=== PATIENT | male | born 1940 | race Caucasian/White ===

== ENCOUNTER → 2023-07-13 09:02 | Outpatient (REF) | payer MEDICARE, OTHER, SELFPAY | LOC: MRI 3T 09:02 | PROVIDERS: ATTENDING PHYSICIAN Ophthalmology; FAMILY PHYSICIAN Internal Medicine | DX: H57.13 Ocular pain, bilateral (principal) | CPT/HCPCS: 70543; 70553; A9575 ==

== ENCOUNTER 2024-06-13 11:51 | Inpatient (IN) | payer MEDICARE, OTHER, SELFPAY ==
[2024-06-13] VITALS (10 sets, daily range): BP systolic 145–170; BP diastolic 68–90; BMI 29.8
[2024-06-13 07:54] LABS: ALT (SGPT) 29 U/L (0-50); AST (SGOT) 24 U/L (17-59); Albumin 3.9 g/dl (3.5-5.0); Alkaline Phosphatase 63 U/L (38-126); Blood Urea Nitrogen 17 mg/dl (9-20); Carbon Dioxide 32 mmol/L (22-30); Chloride 101 mmol/L (98-107); Glucose 122 mg/dl (70-99); Magnesium 2.2 mg/dl (1.6-2.3); Potassium 4.3 mmol/L (3.5-5.1); Sodium 140 mmol/L (135-145); Total Bilirubin 0.8 mg/dl (0.2-1.3); Total Protein 6.5 g/dl (6.3-8.2); eGFR > 60.00
[2024-06-13] MEDS: ANTIVERT 25 MG PO (07:57)
[2024-06-13 08:23] LABS: TSH Reflex To Free T4 0.98 uIU/ml (0.47-4.68)
--- NOTE | 2024-06-13 08:23 | ED.GENMED ---
History of Present Illness
General
Chief Complaint: Dizziness
Source: patient and spouse
Exam Limitations: none
Time Seen by Provider: 06/13/24 07:18
Nursing documentation reviewed up to this point in time: agreed with
History of Present Illness
History of Present Illness:
83-year-old male with past medical history of, GERD, bradycardia presenting to the emergency department today with concerns of room spinning dizziness that occurred after going to the bathroom roughly 3 hours prior to arrival. Some ongoing
dizziness but only with movement otherwise feels well when sitting and resting. Denies any chest pain shortness of breath mild cough over the past few weeks. No fevers.
Past History
Past History
ED Past Medical History: GERD (gastric ulcers), HTN and Other (Peptic ulcer disease, Low back pain, psoriasis)
ED Past Surgical History: Orthopedic and Tonsilectomy
Social History
Tobacco: Non-smoker
Alcohol: None
Family History
Family History: Other (Mother with lung cancer)
Review of Systems
Review of Systems
Allergies reviewed?: Yes
All Other Systems: ROS reviewed and negative except as documented in HPI and ROS
Phy Exam
Physical Exam
Physical Exam:
GENERAL: Alert , in no apparent distress
EYE: pupils equal and reactive
NECK: Supple, no significant adenopathy.
ENT: o/p clr, mmm.
CARDIAC: Regular rate and rhythm .
LUNGS: Clear breath sounds bilaterally, no acute respiratory distress, no wheezes/rales/rhonchi
ABDOMEN: Soft, without focal tenderness, no r/g, no cvat
NEUROLOGICAL: Alert and oriented, no focal neuro deficits 5 out of 5 upper and lower extremity strength normal sensation with palpating bilaterally
SKIN: Warm and dry, skin intact.
MUSCULOSKELETAL: No edema, well perfused.
PSYCH: Normal and appropriate interaction.
Course
Orders/Labs/Results
Orders:
Orders
06/13/24 07:07
Electrocardiogram (*1) Urgent
Reason for Study: Vertigo / Dizzy
EKG- Treatment ONCE
06/13/24 07:18
CMP [Comprehensive Metabolic Panel] Urgent
Complete Blood Count/With Diff Urgent
Magnesium Urgent
TSH Reflex To Free T4 Urgent
06/13/24 07:35
Meclizine [Antivert] 25 mg PO NOW STA
Chest [CR Chest - 2 Views ] Urgent
Comment:
Reason For Exam: cough
06/13/24 09:49
0.9% Sodium Chloride 1000 ml [Nss] 1,000 ml IV BOLUS
Abnormal Lab Results
06/13/24
07:18
Hct 52.3 H %
(39.0-52.0)
MCV 95.1 H fL
(80.0-94.0)
MCH 31.8 H pg
(27.0-31.0)
MPV 12.1 H fL
(7.4-10.4)
Abs Immat Gran (auto) 0.1 H 10^3/uL
(0-0.05)
Immature Gran % 0.9 H %
(0-0.5)
Lymphocytes % 19.1 L %
(20.5-51.1)
Carbon Dioxide 32 H mmol/L
(22-30)
Glucose 122 H mg/dl
(70-99)
06/13/24 07:18
06/13/24 07:18
Vital Signs
Initial and Last Documented VS:
Initial Vital Signs
Temp Pulse Resp BP Pulse Ox
97.6 F 40 18 156/86 100
06/13/24 06:56 06/13/24 06:56 06/13/24 06:56 06/13/24 06:56 06/13/24 06:56
Last Documented Vital Signs
Temp Pulse Resp BP Pulse Ox
97.6 F 58 17 151/75 98
06/13/24 06:56 06/13/24 09:15 06/13/24 09:00 06/13/24 09:15 06/13/24 09:15
MDM/Problems Addressed
MDM/Problems Addressed:
83-year-old male presenting to the emergency department today with concerns of worsening dizziness. No additional symptoms otherwise. Occurred this morning a few hours prior to arrival. Blood pressure slightly elevated on arrival heart rate in
the 40s and 50s. He does have a known history of bradycardia. Does have this chronically. Labs here without acute abnormalities. Patient was given dose of meclizine as initial symptoms seem to be somewhat consistent potentially with vertigo.
Meclizine without significant improvement of symptoms still lightheaded patient's heart rate occasionally in the low 30s. Concerning this plan to admit for monitoring and cardiology consultation.
*Critical Care Note
Total Time (30-74mins, 75-104mins- exclusive of procedures): Not Applicable
ED Attending Note
-
Portions of this chart may have been created with voice recognition software.� Occasional wrong word or��sound alike� substitutions may have occurred due to the inherent limitations of voice recognition software.
Discharge Plan
Departure
Patient Disposition: Admit
Date of Disposition: 06/13/24
Time of Disposition: 10:11
Presentation/result/management discussed w/ accepting MD/DO: Hospitalist
Patient with high blood pressure during this ER visit?: No
Condition: Good
Covid-19: Not Applicable
Discharge Problem:
Bradycardia
Prescriptions:
No Action
chromium picolinate 200 MCG tablet
200 mcg PO DAILY
Vitamin D3:
4,000 units PO DAILY
losartan-hydrochlorothiazide 1 TAB tablet
1 tab PO DAILY Qty: 1 0RF
mupirocin 1 APPLIC ointment
1 applic topical BID Qty: 1 0RF
sennosides [senna] 1 TABLET tablet
2 tab PO BID 0RF
acetaminophen 325 MG tablet
650 mg PO Q4HWA 0RF
aspirin 325 MG tablet
325 mg PO DAILY 0RF
Rx Instructions:
take with meal
magnesium hydroxide 30 ML suspension
30 ml PO DAILYPRN PRN (Reason: constipation) 0RF
docusate sodium 100 MG capsule
100 mg PO BID 0RF
pantoprazole 40 MG tablet,delayed release (DR/EC)
40 mg PO HS Qty: 30 0RF
Rx Instructions:
take 2x day x 3 days, then nightly on an empty stomach
oxycodone 5 MG tablet
5 mg PO Q6HPRN PRN (Reason: moderate-severe pain) Qty: 25 0RF
Rx Instructions:
1 tab moderate pain or 2 if pain severe
Dx total joint replacement
ongoing therapy
metaxalone 800 mg tablet
800 mg PO TID PRN (Reason: muscle pain) Qty: 14 0RF
tramadol 50 mg tablet
50 mg PO Q8H PRN (Reason: pain) Qty: 7 0RF
oxycodone-acetaminophen [Percocet] 5-325 mg Tablet
1 tab PO Q6HPRN PRN (Reason: pain) Qty: 12 0RF
Referrals:
Kranthi Groves MD [Family Provider] -
Interventions
Interventions:
*Risk Screen - Suicide Last Done: 06/13/24 06:59
*General Assessment Last Done: 06/13/24 07:45
*Neglect/Abuse Screening Last Done: 06/13/24 06:59
ED- Fall Risk Assessment Last Done: 06/13/24 07:43
*ED COVID-19 Vaccine History Last Done: 06/13/24 07:45
ED- Neurological Assessment Last Done: 06/13/24 07:43
ED- Cardiac Assessment Last Done: 06/13/24 07:43
ED Swallowing Screen Last Done: 06/13/24 07:43
Discharge Date and Time
Print Language: THAI
[2024-06-13 08:35] LABS: % Basophils 0.3 % (0-2); % Eosinophils 1.2 % (0-6); % Immature Granulocytes 0.9 % (0-0.5); % Lymphocytes 19.1 % (20.5-51.1); % Neutrophils 70.5 % (42.2-75.2); Absolute Eosinophils 0.1 10^3/uL (0-0.7); Absolute Immature Granulocytes 0.1 10^3/uL (0-0.05); Absolute Lymphocytes 1.3 10^3/uL (1.2-3.4); Absolute Monocytes 0.6 10^3/uL (0.1-0.6); Absolute Neutrophils 4.8 10^3/uL (1.4-6.5); Hematocrit 52.3 % (39.0-52.0); Hemoglobin 17.5 g/dL (13.0-18.0); Mean Corp Hgb Conc. 33.5 g/dL (33.0-37.0); Mean Corpuscular Hgb 31.8 pg (27.0-31.0); Mean Corpuscular Volume 95.1 fL (80.0-94.0); Mean Platelet Volume 12.1 fL (7.4-10.4); Nucleated Red Blood Cells % 0 % (-); Platelet Count 150 10^3/uL (130-400); Red Cell Dist. Width 12.9 % (11.5-14.5); White Blood Cell Count 6.9 10^3/uL (4.8-10.8)
[2024-06-13] MEDS: NSS 1000 IV (10:10)
[2024-06-13 11:40] LABS: Troponin I < 0.012 ng/ml
--- NOTE | 2024-06-13 12:43 | CON.CAR ---
Addendum entered and electronically signed by Keisha Milan MD 06/13/24 14:23:
I saw and examined the patient.
The Industrial Furnace Fabricator's note was reviewed and I agree with the note.
Comment: I spoke with the patient at great length. His cake cutter machine in [place] has told him previously that he is going to need a pacemaker. He has had intermittent dizziness at times related to phlebotomies (undergoes this for possible
hemochromatosis or polycythemia) but also sometimes dizziness with changing position or walking at home. Today's episode with persistent lightheadedness with the room spinning without trigger. EKG and telemetry with multiple episodes of sinus node
exit block. Frequent pauses noted. In the past by history pauses up to 4 seconds. Echocardiogram with normal LV function. Aortic valve sclerosis without significant valvular heart disease. Labs reviewed.
Exam he is alert and appropriate. 2/6 basal systolic murmur. Clear to auscultation bilaterally. No significant edema.
Given multiple episodes on telemetry and symptoms of dizziness and room spinning without clear trigger etiology is remains consistent with sinus node dysfunction and sinus node exit block for which he is having multiple events. He likely also has
some degree of vasovagal lightheadedness at times and will continue with good hydration.
We discussed the risks and benefits of proceeding with pacemaker. We discussed pacemaker procedure at great length including procedure itself, arm restrictions for 4 weeks and follow-up. He is agreeable to proceed.
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
Echo stable.
Labs stable.
I have discussed with electrophysiology and they agree with plan. N.p.o. for pacemaker today.
Original Note:
Consultation
Consultation Request
Date/Time Consultation Requested: 06/13/24
Date/Time Consultation Performed: 06/13/24
Requesting Provider: Hernando THORNE in the ER
Performing Provider: Dr. Keisha Milan
Reason for Consultation: Dizzy, abnormal ECG
Medical History
-
History of Present Illness:
Patient came to [facility] with dizziness and is now admitted with abnormal ECG and cardiology has been consulted. Patient follows with cake cutter machine in [place] primarily, but has seen Dr. Handley intermittently in the past. Patient reports a h/o 'too
much iron' in his blood and so he donates 4 times a year and after his last 3 phlebotomies he had near syncope. He then notes that his primary cake cutter machine noted that his HR was getting lower over the years and so patient wore a 1 week monitor last
year and HR as low a 29 at one point so PPM was recommended, but patient declined due to lack os symptoms. Patient awoke early this morning with need to urinate and stood up from bed quickly and initially felt fine, but after ambulating 20 feet he
started with lightheadedness and felt like the room was spinning. No LOC. Patient called 911 and in the ER he was given meclizine with minimal improvement. Tele and ECG looked like SR with intermittent sinus node exit block. No chest pain or SOB.
PMH:
HTN
PCV
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
Spinal stenosis
Past Medical History
Past Medical History: Other (in HPI)
Past Surgical History: Orthopedic
Social History
Tobacco: Non-Smoker (but smokes)
Alcohol: None
Drug: None
Personal:
Living: With Family
Family History
Family History: Other (FH of pericarditis)
Allergies / Home Medications
Allergy/AdvReac Type Severity Reaction Status Date / Time
aquacell Allergy Rash Uncoded 06/13/24 07:00
�Medication �Instructions �Recorded �Confirmed �Type
chromium picolinate 200 mcg tablet 200 mcg PO DAILY Supplement 02/06/19 06/13/24 History
cholecalciferol (vitamin D3) 50 100 mcg PO DAILY Supplement 06/13/24 06/13/24 History
mcg (2,000 unit) tablet (Vitamin
D3)
hydrochlorothiazide 25 mg tablet 25 mg PO DAILY Blood Pressure 06/13/24 06/13/24 History
losartan 100 mg tablet 100 mg PO DAILY Blood Pressure 06/13/24 06/13/24 History
Review of Systems
-
History Source: Patient
All other systems: Negative unless noted
Physical Exam
Vital Signs
Temp Pulse Resp BP Pulse Ox
97.6 F 49 10 151/89 99
06/13/24 06:56 06/13/24 11:00 06/13/24 11:00 06/13/24 11:00 06/13/24 11:00
GEN: NAD. AAOx3
HEENT: EOMI, MMM
LUNGS: RA. CTA, no wheezes/rales
CV: Reg, S1/S2, no murmur
ABD: soft, BS+, NT/ND
EXT: No clubbing, cyanosis, lesions or edema B/L
NEURO: Gross non-focal
SKIN: No rash
Lab Results
06/13/24 07:18
06/13/24 07:18
Troponin I < 0.012 ng/ml 06/13/24 10:59
Impression / Plan
-
PCP: Unknown
Cardiology: Dr. Kranthi Groves [phone] is his cake cutter machine in [place], Dr. Handley locally but last seen 2018
Impression:
Admitted with dizziness
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
previously recommended PPM by his PCP in 2023
HTN
PCV
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
Spinal stenosis
Echo 06/13/24: EF 55-60%, no WMA, normal RV size and function, trace MR, no /AI, mild TR with PAP 22 mmHg
Plan:
-Patient came to [facility] with dizziness and is now admitted with abnormal ECG and cardiology has been consulted. Patient follows with cake cutter machine in [place] primarily, but has seen Dr. Handley intermittently in the past. Patient reports a h/o 'too
much iron' in his blood and so he donates 4 times a year and after his last 3 phlebotomies he had near syncope. He then notes that his primary cake cutter machine noted that his HR was getting lower over the years and so patient wore a 1 week monitor last
year and HR as low a 29 at one point so PPM was recommended, but patient declined due to lack os symptoms. Patient awoke early this morning with need to urinate and stood up from bed quickly and initially felt fine, but after ambulating 20 feet he
started with lightheadedness and felt like the room was spinning. No LOC. Patient called 911 and in the ER he was given meclizine with minimal improvement. Tele and ECG looked like SR with intermittent sinus node exit block. No chest pain or SOB.
-ECG and tele reviewed by me look like SR and intermittent sinus node exit block.
-Patient was previously recommended PPM and declined, but is now agreeable due to increased symptoms.
-PPM orders placed.
-Echo performed in the ER is noted above. EF preserved.
-BP 160/74 and he missed his usual doses of HCTZ 25 mg daily and losartan 100 mg daily. Will give meds post-PPM pending BP.
-Troponin undetectable. No CP.
--- NOTE | 2024-06-13 16:12 | ITS.CL.PACE ---
Rectifying Operator - Pacemaker Implant
Pacemaker Implant
Procedure Report:
PACEMAKER IMPLANT REPORT
PCP: Unknown
Cardiology: Dr. Kranthi Groves [phone] is his maintenance director in [place], Dr. Handley locally but last seen 2018
Date of Procedure: 06/13/24
Procedure:
Implantation of dual-chamber permanent pacemaker utilizing the left bundle branch for conduction system pacing
Indication/Diagnosis:
Non-reversible symptomatic bradycardia due to sinus node dysfunction.
After informed consent was obtained, 'time out' was called and confirmed, the patient was prepped and draped in a sterile fashion. Lidocaine with epi was used for local anesthesia. Central venous access was obtained via subclavian venipuncture. An
incision was made along the left chest and a pre-pectoral pocket was formed. Using a Seldinger technique and peel-away sheaths, the pacing leads were placed under fluoroscopic guidance.
Fluoroscopy was used to determine likely anatomic site for left bundle branch pacing. The Medtronic C315 sheath was used to deliver the Medtronic 3830 Selectsecure pacing lead with the helix exposed just exposed from the sheath tip during continuous
monitoring when pacemapping the septum during gentle clockwise rotation to obtain a paced QRS morphology of a W pattern in lead V1. Once the suspected optimal site was identified, lead deployment was performed with several rapid rotations as paced
QRS morphology was intermittently monitored until a paced QRS complex in lead V1 demonstrated development of an R wave [ ] (qR or rSR).
Unipolar pacing impedance dropped by approximately 100 ohms suggesting it had reached the left ventricular subendocardial.
Stable VEgm injury current is present throughout final lead position including at end of case, suggesting there was no perforation through the septum into the LV cavity.
Unipolar pacing impedance is 1000 Ohms
Unipolar pacing threshold is stable at 1 V @ 0.4 ms.
Final conduction system paced QRS complex duration is 104 ms
LVAT is 80 ms and peak V5 -> peak V1 timing is 36 ms
Right atrial lead was placed at the RAA.
Once testing (see below) showed adequate and stable function, the leads were secured using the suture sleeves. The pocket was liberally irrigated with antibiotic solution. The leads were connected to the generator header and the leads and
generator were placed within the pocket. Fluoroscopy confirmed stable lead position. The pocket was closed in the typical fashion.
Antibiotic pouch was used
Fluoroscopy was used to guide lead placement.
IMPLANTS:
Medtronic [id number], SN: [id number], Left Pectoral
RA: Medtronic 5076-45, SN: [id number], RAA
Left Bundle: Medtronic [id number] , SN:[id number], Interventricular septum at LBB
DEVICE TESTING:
Sensing: RA 3 mV, RV 15 mV
Capture: RA 1.25 V@0.4ms, RV 0.75 V@0.4ms
Ohms: RA 650, RV 1000
FINAL PROGRAMMING
[place] Pacing: AAIR+ 60-130 ppm
COMPLICATIONS:
None
CONCLUSIONS:
Successful implant of dual chamber permanent pacemaker utilizing Left Bundle Branch conduction system capture for ventricular resynchronization pacing.
Primary indication for pacemaker implantation is sick sinus syndrome. Therefore we will try to minimize ventricular pacing using MVP algorithm. Should ventricular pacing become required, the ability to capture the ventricular conduction system
should reduce the likelihood of developing any pacing induced cardiomyopathy.
RECOMMENDATIONS:
1. Post-op care (tele, CXR, IV abx)
2. In-Office wound check in 5-7 days
Copy to:
Dr. Kranthi Groves
Dr. Jamie Handley
[2024-06-13] MEDS: LOVENOX 40 MG SC (17:40)
--- NOTE | 2024-06-13 17:58 | HPS.HSE ---
Addendum entered and electronically signed by Speedy Hawley MD 06/14/24 13:14:
83 male history of hypertension sinus bradycardia with known pauses GERD vitamin D deficiency who presents with complaints of dizziness began around 4:00 and morning after micturating. He did not pass out was not associated with shortness of breath
or chest discomfort was told by EMS likely vertigo. Received 1 dose of meclizine in the ED without significant improvement however bedside that he had sinus bradycardia with sinus pauses of 3 to 4 seconds. He follows with a charcoal burner beehive kiln at
[place]. In the past has been recommended pacemaker after having a 1 week clinical research monitor that showed sinus bradycardia down to the and received a second opinion for which by charcoal burner beehive kiln in [place] recommended consideration for pacemaker
however this was not followed up on.
Near syncope/dizziness which could be vertigo but expect some improvement after meclizine. Noted to have sinus bradycardia and sinus pauses but had a regular rhythm on palpation of radial pulse.
Will check 2D echocardiogram
Avoid AV raymond blocking agents
Return on telemetry
Obtain troponins
Consult cardiology
Keep atropine at bedside
As this is likely symptomatic bradycardia with sinus pause will likely require pacemaker as he is hemodynamically stable I do not think we have to go forward with TVP/transcutaneous pacing at this time
Hypertension
Continue antihypertensives
Vitamin D deficiency
Continue vitamin D
Total time spent 79minutes
Original Note:
Family Physician
-
Family Physician: Kranthi Groves MD ([place], [place])
Chief Complaint
-
Dizziness
History of Present Illness
Mr. Garcia is an 83-year-old male with a past medical history of sinus bradycardia, hypertension, and 'too much iron in his blood' presented to [facility] with the chief complaint of dizziness. Patient states that he woke early this morning
with a need to urinate, and stood up from his bed quickly, ambulated approximately 20 feet, and then started to feel lightheaded. He described this as if being on a boat that was rocking back and forth. He denied any chest pain, shortness of
breath, nausea, diaphoresis, or loss of consciousness during this episode. Patient states the episode lasted approximately half an hour. During this time, he decided to call EMS. Patient was fine enough to go outside to his driveway and move his
car so that EMS could use the driveway.
In the emergency department, patient was given 1 dose of meclizine with minimal improvement. EKG showed marked sinus bradycardia, and old right bundle branch block, and when compared to an old EKG, ventricular rate had decreased by about 20 beats
per minute. Patient states that his regular charcoal burner beehive kiln and [employer] told him that over the years his sinus bradycardic rate was getting lower and lower. Patient also notes, that he has had syncopal episodes in the past, however all
episodes were after donating blood, which she does regularly, since he was told that he has 'too much iron in his blood'.
Medical History
Past Medical History
Past Medical History: Reports Other (Sinus bradycardia, hypertension, GERD, 'too much iron in the blood')
Past Surgical History: Reports Other (Bilateral hip surgery, spinal surgery)
Social History
Tobacco: Non-smoker
Alcohol: None
Drug: None
Personal:
Living: With Family
Family History
Family History: Not pertinent
Allergies / Home Medications
Allergies reflects when Allergies were last updated in [facility].
Home Medications with original date entered in [facility]
Allergy/Medication List:
Allergies: Aquacel�rash
Cholecalciferol 100 mcg p.o. daily
Chromium picolinate 200 mcg p.o. daily
Hydrochlorothiazide 25 mg p.o. daily
Losartan 100 mg p.o. daily
Review of Systems
-
History Source: Patient
A 12 point ROS was completed and negative except as noted: Yes
Physical Exam
Vital Signs
Vital Signs
Temp Pulse Resp BP Pulse Ox
97.7 F 42 18 165/83 99
06/13/24 15:05 06/13/24 15:05 06/13/24 15:05 06/13/24 15:05 06/13/24 15:05
Physical Exam
General: Well Developed, Well Nourished, Comfortable and Conversant
HEENT: NormoCephalic, Anicteric and Moist mucous membranes
Respiratory: Clear and Non Labored Respirations; No Wheezes, Rales, Rhonchi or Crackles
Cardiac: S1/S2, Irregular Rhythm and Bradycardia
GI: Soft, Non Tender and Non Distended
Musculoskeletal: No Clubbing, No Cyanosis and No Edema
Skin: Warm and Dry
Neuro: Awake, Alert, Oriented, No Motor Deficits, Nonfocal/grossly intact and Other (Gait steady)
Psych: Calm
Laboratory Results
-
06/13/24 07:18
06/13/24 07:18
Laboratory Results
Total Bilirubin 0.8 mg/dl (0.2-1.3) 06/13/24 07:18
AST 24 U/L (17-59) 06/13/24 07:18
ALT 29 U/L (0-50) 06/13/24 07:18
Alkaline Phosphatase 63 U/L (38-126) 06/13/24 07:18
Troponin I < 0.012 ng/ml 06/13/24 10:59
Data Reviewed
-
Lab Data: Labs Reviewed by me and Discussed with Patient
Impression/Plan
-
1. Sinus Node Exit Block
- Cardiology consulted early
- EKG and tele show intermittent sinus node exit block; PPM is indicated
- Echo: EF preserved
- Negative troponins
2. Hypertension
-BP 165/83
-Patient did not take his meds this morning, held for procedure
-Restart home meds tomorrow
3. Vitamin D Deficiency
-Continue Home Meds
Lovenox/regular/full code
[2024-06-13] MEDS: TYLENOL 650 MG PO (20:10)
[2024-06-13] MEDS: ULTRAM 25 MG PO (21:35)
[2024-06-13] MEDS: ANCEF 5 IV (21:36)
--- NOTE | 2024-06-13 23:29 | PTCARENOTE ---
22:04 troponin jumped to 0.370, was previously negative at 11:00 AM. Pt has no complaints of chest pain, palpitations. States he's actually feeling better since pacemaker was placed this afternoon. WIRE WRAPPING MACHINE OPERATOR made aware, asked to reach out to geriatric personal care aide
[employer] Deputy Sheriff. Cards aware, no new orders at this time. Agrees with trending troponins. Pt resting comfortably in bed, plan of care ongoing.
[2024-06-14 03:41] VITALS: BP 163/88
[2024-06-14 04:46] LABS: Hematocrit 46.5 % (39.0-52.0); Mean Corp Hgb Conc. 34.4 g/dL (33.0-37.0); Mean Corpuscular Hgb 31.9 pg (27.0-31.0); Mean Corpuscular Volume 92.6 fL (80.0-94.0); Mean Platelet Volume 12.1 fL (7.4-10.4); Platelet Count 126 10^3/uL (130-400); Red Blood Cell Count 5.02 10^6/uL (4.70-6.10); Red Cell Dist. Width 12.5 % (11.5-14.5); White Blood Cell Count 6.7 10^3/uL (4.8-10.8)
[2024-06-14 04:56] LABS: Blood Urea Nitrogen 16 mg/dl (9-20); Calcium 8.5 mg/dl (8.4-10.2); Carbon Dioxide 27 mmol/L (22-30); Chloride 104 mmol/L (98-107); Glucose 104 mg/dl (70-99); Magnesium 2.1 mg/dl (1.6-2.3); Potassium 4.1 mmol/L (3.5-5.1); Sodium 137 mmol/L (135-145)
[2024-06-14] MEDS: ULTRAM 25 MG PO (05:02)
[2024-06-14] MEDS: ANCEF 5 IV (05:02)
[2024-06-14 05:05] LABS: Estimated Creatinine Clearance 59 ml/min; eGFR > 60.00
[2024-06-14 05:18] LABS: Troponin I 0.332 ng/ml
[2024-06-14 07:13] VITALS: BP 158/88
[2024-06-14] MEDS: VITAMIN D3 (cholecalciferol) 100 MCG PO (08:32)
[2024-06-14] MEDS: COZAAR 100 MG PO (08:32)
[2024-06-14] MEDS: ORETIC 25 MG PO (08:32)
[2024-06-14 10:07] LABS: Troponin I 0.342 ng/ml
[2024-06-14 11:35] VITALS: BP 157/76
--- NOTE | 2024-06-14 12:06 | W.PN.HOSP.TC ---
Addendum entered and electronically signed by Kole Feliz DO, Resident 06/14/24 15:57:
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
- Troponin trended down
Addendum entered and electronically signed by Speedy Hawley MD 06/14/24 15:28:
S/p PPM. Heart rate remains in the 60s. Dizziness completely resolved. Now feeling much better stronger. Ready to go home. Once cleared by cardiology will be discharged.
More than 30 minutes spent in discharge including
Final examination of the patient
Summarizing hospital stay
Instructions for continuing care to all relevant caregivers
Preparation of discharge records, prescriptions, and referral forms
Total time spent (in minutes): 36mins
Original Note:
Today's Communication/Plan
-
.
Assessment / Plan
Assessment / Plan
1. Sinus Node Exit Block
- Cardiology consulted early
- EKG and tele showed intermittent sinus node exit block yesterday
- PPM placed yesterday; patient tolerated procedure well
- Echo: EF preserved
- Negative troponins yesterday; Troponin = 0.3
2. Hypertension
-BP 157/76
-Restart blood pressure medications this a.m.
3. Vitamin D Deficiency
-Continue Home Meds
Lovenox/regular/full code
Anticipated Discharge: Today
Subjective/Interval History
-
Date of Service: June 14, 2024
Patient seen and examined while resting comfortably in bed. Patient states that he is feeling well today. He denies any dizziness, chest pain, shortness of breath, lower extremity swelling. States there is some discomfort in his left arm
secondary to the movement restrictions placed on it.
Objective Data
-
Labs:
Laboratory Results
06/14/24
04:21
WBC 6.7
Hgb 16.0
Hct 46.5
Plt Count 126 L
Sodium 137
Potassium 4.1
Chloride 104
Carbon Dioxide 27
BUN 16
Creatinine 1.0
Glucose 104 H
Calcium 8.5
Vital Signs:
Vital Signs
Temp Pulse Resp BP Pulse Ox
97.9 F 61 18 157/76 96
06/14/24 11:35 06/14/24 11:35 06/14/24 11:35 06/14/24 11:35 06/14/24 11:35
I&O
06/13/24 06/14/24 06/15/24
06:59 06:59 06:59
Intake Total 0 / 0
Output Total 550 / 550
Balance -550 / -550
Review of Systems
-
History Source: Patient
Constitutional: Reports No Symptoms
Respiratory: Reports No Symptoms
Cardiac: Denies Chest Pain
Neuro: Denies Dizzy or Headache
Physical Exam
-
General: Well Developed, Well Nourished, No Apparent Distress, Comfortable and Conversant
HEENT: Normocephalic and Atraumatic
Respiratory: Clear to Auscultation
Cardiac: Regular Rhythm and S1/S2
GI: Soft and Nontender
Musculoskeletal: No Clubbing, No Cyanosis and No Edema
Skin: Warm
Neuro: Awake and Alert
Psych: Calm
Data Reviewed
-
Labs: Labs Reviewed by me and Discussed with Patient
--- NOTE | 2024-06-14 13:09 | W.PN.CARDCBS ---
Addendum entered and electronically signed by Nomi Cummings MD 06/14/24 16:50:
Patient feels well postop day 1 status post dual-chamber Medtronic permanent pacemaker
PMH: Possible hemochromatosis, hypertension, PVCs, spinal stenosis
160/80, pulse 62, respirate 20, head neck exam unremarkable, left arm immobilizer, lungs clear regular rate and rhythm, incision intact, no edema, abdomen benign
EKG atrially paced, right bundle branch block
Telemetry reviewed
Labs: Hemoglobin 16, glucose 104, troponin 0.342, creatinine 1
Impression: See below
Plan:
Overall doing well, detectable troponin likely related to pacemaker implantation
Okay for discharge from cardiac standpoint
Cardiac follow-up arranged
Original Note:
Today's Communication / Plan
-
Pacemaker site clean dry intact
AV paced rhythm on post pacemaker implant EKG
Chest x-ray stable with no pneumothorax
Stable for cardiology standpoint for discharge
Impression / Plan
-
PCP: Unknown
Cardiology: Dr. Kranthi Groves [phone] is his spares scheduler in [place], Dr. Handley locally but last seen 2019
Impression:
Admitted 06/13/2024 with dizziness
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
s/p DC Medtronic PPM with His bundle lead 06/13/2024
HTN
PCV
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
Spinal stenosis
Echo 06/13/24: EF 55-60%, no WMA, normal RV size and function, trace MR, no /AI, mild TR with PAP 22 mmHg
Plan:
Admitted 06/13/2024 with dizziness and found to have sinus node exit block on ECG and tele
Successful implant of dual chamber Medtronic permanent pacemaker utilizing Left Bundle Branch conduction system capture for ventricular resynchronization pacing.
Primary indication for pacemaker implantation is sick sinus syndrome. Therefore we will try to minimize ventricular pacing using MVP algorithm. Should ventricular pacing become required, the ability to capture the ventricular conduction system
should reduce the likelihood of developing any pacing induced cardiomyopathy.
-ECG 06/14/24 personally reviewed by myself - now with AV paced rhythm s/p PPM 06/13/24
-Post PPM CXR - No evidence for pneumothorax and leads stable
-Patient reports he feels great post PPM implant no further dizziness.
-Echo with EF preserved and no significant valve disease
-BP a bit on the higher side. Losartan and HCTZ were initially held on admission but resumed post PPM. If BP remains high as outpt consider starting low dose amlodipine
-Troponin initially undetectable however found to be 0.37 post pacemaker implant and trended down thereafter. Patient denies any chest pain and elevated troponin most likely secondary to pacemaker insertion. Could consider ischemic evaluation as
outpatient.
-Patient stable from cardiac standpoint for discharge today
-Will arrange for outpatient follow-up and incision check.
-Patient does follow with cardiology and [place] but thinks he wants to get established with cardiology locally. Will arrange
Discussed with nursing and hospitalist
HPI 06/13/2024:
Patient came to [facility] with dizziness and is now admitted with abnormal ECG and cardiology has been consulted. Patient follows with spares scheduler in [place] primarily, but has seen Dr. Handley intermittently in the past. Patient reports a h/o 'too
much iron' in his blood and so he donates 4 times a year and after his last 3 phlebotomies he had near syncope. He then notes that his primary spares scheduler noted that his HR was getting lower over the years and so patient wore a 1 week monitor last
year and HR as low a 29 at one point so PPM was recommended, but patient declined due to lack os symptoms. Patient awoke early this morning with need to urinate and stood up from bed quickly and initially felt fine, but after ambulating 20 feet he
started with lightheadedness and felt like the room was spinning. No LOC. Patient called 911 and in the ER he was given meclizine with minimal improvement. Tele and ECG looked like SR with intermittent sinus node exit block. No chest pain or SOB.
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
Subjective
Date of Service: June 14, 2024
Patient seen and examined. Patient reports he is feeling well. Denies further episodes of dizziness, shortness of breath or chest pain
Objective
Labs:
06/14/24 04:21
06/14/24 04:21
Labs
Hgb 16.0 g/dL (13.0-18.0) 06/14/24 04:21
Hct 46.5 % (39.0-52.0) 06/14/24 04:21
Plt Count 126 10^3/uL (130-400) L 06/14/24 04:21
Sodium 137 mmol/L (135-145) 06/14/24 04:21
Potassium 4.1 mmol/L (3.5-5.1) 06/14/24 04:21
BUN 16 mg/dl (9-20) 06/14/24 04:21
Creatinine 1.0 mg/dL (0.7-1.3) 06/14/24 04:21
Glucose 104 mg/dl (70-99) H 06/14/24 04:21
Troponins
06/13/24 06/13/24 06/13/24
10:59 16:15 22:04
Troponin I < 0.012 Cancelled 0.370 H*
06/14/24 06/14/24
04:21 09:37
Troponin I 0.332 H* 0.342 H*
Vital Signs and I&O:
Vital Signs
Temp Pulse Resp BP Pulse Ox
97.9 F 61 18 157/76 96
06/14/24 11:35 06/14/24 11:35 06/14/24 11:35 06/14/24 11:35 06/14/24 11:35
Vital Signs
Temp Pulse Resp BP Pulse Ox
97.9 F 61 18 157/76 96
06/14/24 11:35 06/14/24 11:35 06/14/24 11:35 06/14/24 11:35 06/14/24 11:35
Intake & Output
06/12/24 06/13/24 06/14/24 06/15/24
06:59 06:59 06:59 06:59
Intake Total 0 / 0
Output Total 550 / 550
Balance -550 / -550
Physical Exam
Physical Exam
GEN: No distress, awake, Ox3, sitting up in bed
HEENT: supple, anicteric, mmm
LUNGS: CTA, no wheezes/rales
CHEST: Pacemaker incision site clean dry intact with minimal dry heme. No evidence of hematoma
CV: Reg, S1/S2, no murmur, rub or gallop
ABD: soft, BS+, NT/ND
EXT: No edema, clubbing or cyanosis
NEURO: Gross non-focal
SKIN: No rash, warm, dry, pink
--- NOTE | 2024-06-14 13:40 | W.DCSUMMARY ---
Discharge Summary
Discharge Data
Date of Admission: 06/13/24
Date of Discharge: 06/14/24
-
Pending Results: No
Hospital Course
Abdias Garcia is a 83-year-old male with a past medical history of sinus bradycardia and hypertension who presented from home via EMS for dizziness.
HISTORY OF PRESENT ILLNESS
Patient woke up in the middle of the night to use the restroom, stood up from his bed quickly, ambulated approximately 20 feet and then started to feel lightheaded. He denied any chest pain, shortness of breath, nausea, diaphoresis, or loss of
consciousness during this episode. The episode lasted approximately half an hour. Patient noted prior history of presyncopal episodes, however each of these episodes were after giving blood.
ED COURSE
In the emergency department, patient was given 1 dose of meclizine with minimal improvement. The EKG showed marked sinus bradycardia and an old right bundle branch block and when compared to an old EKG, the ventricular rate had decreased by about
20 bpm. The patient was admitted to [facility] for telemetry monitoring and evaluation of this bradycardia.
HOSPITAL COURSE
Patient's physical exam exhibited an irregular rhythm with sinus pauses and sinus pauses were seen on the patient's heart monitor. Cardiology was consulted early on in hospital course and the patient was diagnosed with a sinus node exit block.
Patient was admitted a permanent pacemaker was indicated, and that he would be scheduled for implantation later that afternoon. The patient tolerated this procedure well, and the next morning was feeling better without any symptoms.
DISCHARGE RECOMMENDATIONS
Follow-up with a gas brazer for an in office wound check in 5 to 7 days.
Continue antihypertensive medications as directed.
Do not drive for 1 week.
Follow-up with primary care physician in approximately 1 week for additional recommendations.
Discharge Plan
-
Patient Disposition: Home (Routine Discharge)
Discharge Diagnosis/Procedures: Pacemaker Implant
Sinus node exit block
Condition: Fair
Diet: Low Cholesterol
Driving Restrictions: No driving for 1 week
Bathing Restrictions: OK to Shower
Stand Alone Forms: DC Inst - Implanted Device
Referrals:
[facility] [Provider Group] - 06/21/24 2:20 pm (Incision check appointment)
Kranthi Groves MD [Family Provider] - in one week
Lee Ann Hart PA-C [Specified Professional Personl] - 06/19/24 10:00 am (You have cardiology follow up with Lee Ann Hart PA-C on July 17 at 10 am in [address] in the [facility] which is located behind the hospital. If you are unable to make
this appointment please call [phone])
Prescriptions:
Continued
chromium picolinate 200 MCG tablet
200 mcg PO DAILY
hydrochlorothiazide 25 mg tablet
25 mg PO DAILY
losartan 100 mg tablet
100 mg PO DAILY
cholecalciferol (vitamin D3) [Vitamin D3] 50 mcg (2,000 unit) Tablet
100 mcg PO DAILY
Discharge Orders:
Discharge Patient (As Directed); Ordered 06/14/24
Ordered By: Kole Feliz
Discharge Date and Time
Print Language: LUXEMBOURGISH
[2024-06-14 15:20] VITALS: BP 160/80
--- NOTE | 2024-06-14 15:38 | PN.CDI ---
CDI
- -
CDI:
Physician Documentation Request
Admit Date: 06/13/24 11:51
Dear Doctor Trini,
Please review the following and provide your response in the progress notes.
Clinical Indicators:
Laboratory Tests
06/13/24 06/13/24 06/14/24
10:59 22:04 04:21
Troponin I < 0.012 0.370 H* 0.332 H*
06/14/24
09:37
Troponin I 0.342 H*
Based on the above and your clinical assessment, please clarify in the progress notes, the appropriate diagnosis, if significant, that supports the above abnormalities and additional evaluation, monitoring and/or treatment rendered:
Non ischemic myocardial injury
Abnormal lab value, clinically insignificant
Other (please specify)
Use of terms such as suspected, likely, concern for, or probable (associated with a specific diagnosis that is being evaluated, monitored, or treated as if it exists) are acceptable and can be coded in the inpatient setting, when documented at the
time of discharge.
Thank you,
Alesia Rodriguez RN BSN CCDS
CDI Specialist
please contact via tiger text
Please use your independent medical judgment in providing your response.
--- NOTE | 2024-06-14 15:47 | CM ---
Alert awake oriented patient who lives with his Graciela who lives in a 2 story home with 3 step to enter and 13 steps to bed and bathroom. He is independent in driving and in all activities of daily living.He was offered VN he declined need.He
had pacemaker placed. will drive him home.
No VN hx / No SNF history
Pharmacy [facility]
PCP DR Mary Groves
PLAN Home Declined VN
== END 2024-06-14 16:48 | disposition home or self-care (01) | DRG 243 ==
LOC: 4 EAST ACU 11:51
PROVIDERS: Internal Medicine Cardiovascular Disease; Nurse Practitioner Gerontology; Physician Assistant; ADMITTING PHYSICIAN Hospitalist; CONSULT PHYSICIAN Internal Medicine Cardiovascular Disease; EMERGENCY PHYSICIAN Emergency Medicine; FAMILY PHYSICIAN Internal Medicine
PROC: 02HL3JZ Insertion of Pacemaker Lead into Left Ventricle, Percutaneous Approach (ICD-10-PCS; 2024-06-13)
PROC: 02H63JZ Insertion of Pacemaker Lead into Right Atrium, Percutaneous Approach (ICD-10-PCS; 2024-06-13)
PROC: 0JH606Z Insertion of Pacemaker, Dual Chamber into Chest Subcutaneous Tissue and Fascia, Open Approach (ICD-10-PCS; 2024-06-13)
DX: I49.5 Sick sinus syndrome (principal); I5A Non-ischemic myocardial injury (non-traumatic); R42 Dizziness and giddiness; K21.9 Gastro-esophageal reflux disease without esophagitis; I10 Essential (primary) hypertension; I35.8 Other nonrheumatic aortic valve disorders; M54.50 Low back pain, unspecified; E83.119 Hemochromatosis, unspecified; Z77.22 Contact with and (suspected) exposure to environmental tobacco smoke (acute) (chronic); Z87.11 Personal history of peptic ulcer disease; Z80.1 Family history of malignant neoplasm of trachea, bronchus and lung; Z88.8 Allergy status to other drugs, medicaments and biological substances
CPT/HCPCS: 33208; 71045; 71046; 80048; 80053; 83735; 84443; 84484; 85025; 85027; 93005; 93306; 96360; 99285; C1769; C1785; C1887; C1892; C1898; Q9967

== ENCOUNTER 2024-06-20 21:54 | Emergency (ER) | payer MEDICARE, OTHER, SELFPAY ==
[2024-06-20 21:57] VITALS: BP 166/100
[2024-06-20 21:58] VITALS: BP 163/108
[2024-06-20 22:00] VITALS: BP 166/100
[2024-06-20 22:32] LABS: % Basophils 0.3 % (0-2); % Eosinophils 2.3 % (0-6); % Immature Granulocytes 0.3 % (0-0.5); % Lymphocytes 19.6 % (20.5-51.1); % Monocytes 11.2 % (1.7-9.3); % Neutrophils 66.3 % (42.2-75.2); Absolute Eosinophils 0.2 10^3/uL (0-0.7); Absolute Lymphocytes 1.5 10^3/uL (1.2-3.4); Absolute Monocytes 0.8 10^3/uL (0.1-0.6); Absolute Neutrophils 4.9 10^3/uL (1.4-6.5); Hematocrit 50.3 % (39.0-52.0); Hemoglobin 17.4 g/dL (13.0-18.0); Mean Corp Hgb Conc. 34.6 g/dL (33.0-37.0); Mean Corpuscular Hgb 32.3 pg (27.0-31.0); Mean Corpuscular Volume 93.5 fL (80.0-94.0); Mean Platelet Volume 11.8 fL (7.4-10.4); Nucleated Red Blood Cells % 0 % (-); Platelet Count 125 10^3/uL (130-400); Red Blood Cell Count 5.38 10^6/uL (4.70-6.10); White Blood Cell Count 7.4 10^3/uL (4.8-10.8)
[2024-06-20 22:39] LABS: ALT (SGPT) 27 U/L (0-50); AST (SGOT) 30 U/L (17-59); Albumin 3.8 g/dl (3.5-5.0); Alkaline Phosphatase 60 U/L (38-126); Blood Urea Nitrogen 26 mg/dl (9-20); Calcium 9.6 mg/dl (8.4-10.2); Carbon Dioxide 32 mmol/L (22-30); Chloride 101 mmol/L (98-107); Estimated Creatinine Clearance 54 ml/min; Glucose 99 mg/dl (70-99); Potassium 4.5 mmol/L (3.5-5.1); Sodium 136 mmol/L (135-145); Total Bilirubin 0.6 mg/dl (0.2-1.3); Total Protein 6.8 g/dl (6.3-8.2); eGFR > 60.00
--- NOTE | 2024-06-20 22:50 | ED.GENMED ---
History of Present Illness
General
Chief Complaint: Dizziness
Time Seen by Provider: 06/20/24 22:47
History of Present Illness
History of Present Illness:
TIME OF INITIAL ENCOUNTER:
HPI: Patient presents with lightheadedness and dizziness. Of note, the patient had a pacemaker placed due to bradycardia about a week ago Dr. Milan. Today he had episodes of lightheadedness and at one point felt like he was going to pass out.
He did not have any chest pain.
EXAM:
GENERAL: Well appearing in no distress
HEENT: Moist oral mucosa
CARDIOVASCULAR: No murmurs, normal heart rate, regular rhythm, No chest wall tenderness, device noted over the left anterior chest wall with no evidence of infection
PULMONARY: No respiratory distress, breath sounds are clear and equal
ABDOMEN: Soft with no peritoneal signs, no tenderness
NEUROLOGIC: Excellent strength all extremities, no coordination deficits
PSYCHIATRIC: Appropriate mental status, normal insight and judgement
EXTREMITIES: Nontender, no edema, moves all extremities equally
SKIN: No rash, no lesions
NUMBER AND COMPLEXITY OF PROBLEMS ADDRESSED AT THE ENCOUNTER
� Chronic conditions affecting care: GERD, high blood pressure, sick sinus syndrome/pacemaker 2024
� Acute Exacerbation and/or Progression of Chronic Illness: This is an acute problem
� Differential Diagnosis includes: Pacemaker malfunction, dehydration, hypertensive emergency, anemia
AMOUNT AND/OR COMPLEXITY OF DATA TO BE REVIEWED AND ANALYZED
� I performed an independent evaluation of and my interpretation is:
EKG: A paced, bifascicular block, no significant change compared to 06/14/2024
CT:
X-rays:
Laboratory Studies: CBC unremarkable except platelets slightly low, bicarb slightly high at 32, BUN is 26 with normal creatinine
Other:
� Review of other/old records: I reviewed the notes from last week including Dr. Milan's note of dual-chamber permanent pacemaker placement
� Clinical information was obtained by an independent historian: None needed
� Prescriptions/Medications Considered but not given:
� Further testing considered but not performed:
RISK OF COMPLICATIONS AND/OR MORBIDITY OR MORTALITY OF PATIENT MANAGEMENT
� Social determinants of health affecting care: Lives at home
� Discussion with other providers:
� Escalation of care including admission/observation vs risk of discharge considered: The patient's Medtronic device was interrogated. There was no abnormality noted including no VT, AT/AF
ANY OTHER UPDATES:
12:00 AM: The patient did have several systolic readings in the 180s and at 1 point was 124. I gave a hydralazine 5 mg dose. Repeat blood pressures have improved. He is already on max dose of losartan and is also on hydrochlorothiazide. Will add
low-dose of amlodipine. 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 Remains pacing appropriately in the emergency department on the monitor.
Past History
Past History
ED Past Medical History: GERD (gastric ulcers), HTN and Other (Peptic ulcer disease, Low back pain, psoriasis)
ED Past Surgical History: Orthopedic and Tonsilectomy
Social History
Tobacco: Non-smoker
Alcohol: None
Family History
Family History: Other (Mother with lung cancer)
Phy Exam
Physical Exam
Physical Exam:
See HPI
Course
Orders/Labs/Results
Orders:
Orders
06/20/24 22:06
EKG [Electrocardiogram (*1)] Urgent
Reason for Study: Tachycardia
06/20/24 22:07
EKG- Treatment ONCE
06/20/24 22:08
Complete Blood Count/With Diff Urgent
Comprehensive Metabolic Panel Urgent
06/20/24 22:50
Interrogate Pacemaker- Treatment ONCE
06/20/24 23:22
HydrALAZINE [Apresoline] 10 mg IV NOW STA
06/20/24 23:28
HydrALAZINE [Apresoline] 5 mg IV NOW STA
Abnormal Lab Results
06/20/24
22:08
MCH 32.3 H pg
(27.0-31.0)
Plt Count 125 L 10^3/uL
(130-400)
MPV 11.8 H fL
(7.4-10.4)
Absolute Monos (auto) 0.8 H 10^3/uL
(0.1-0.6)
Lymphocytes % 19.6 L %
(20.5-51.1)
Monocytes % 11.2 H %
(1.7-9.3)
Carbon Dioxide 32 H mmol/L
(22-30)
BUN 26 H mg/dl
(9-20)
06/20/24 22:08
06/20/24 22:08
Vital Signs
Initial and Last Documented VS:
Initial Vital Signs
Temp Pulse Resp BP Pulse Ox
36.7 C 66 18 166/100 99
06/20/24 21:57 06/20/24 21:57 06/20/24 21:57 06/20/24 21:57 06/20/24 21:57
Last Documented Vital Signs
Temp Pulse Resp BP Pulse Ox
36.7 C 60 19 145/86 97
06/20/24 21:57 06/21/24 00:00 06/21/24 00:00 06/21/24 00:00 06/21/24 00:00
*Critical Care Note
Total Time (30-74mins, 75-104mins- exclusive of procedures): Not Applicable
ED Attending Note
-
Portions of this chart may have been created with voice recognition software.� Occasional wrong word or��sound alike� substitutions may have occurred due to the inherent limitations of voice recognition software.
Discharge Plan
Departure
Patient Disposition: Home (Routine Discharge)
Date of Disposition: 06/21/24
Time of Disposition: 00:14
Patient with high blood pressure during this ER visit?: Yes
Discharge Problem:
Dizziness
Instructions: Dizziness
Prescriptions:
New
amlodipine 2.5 mg tablet
2.5 mg PO DAILY Qty: 30 0RF
No Action
chromium picolinate 200 MCG tablet
200 mcg PO DAILY
hydrochlorothiazide 25 mg tablet
25 mg PO DAILY
losartan 100 mg tablet
100 mg PO DAILY
cholecalciferol (vitamin D3) [Vitamin D3] 50 mcg (2,000 unit) Tablet
100 mcg PO DAILY
Referrals:
Kranthi Groves MD [Family Provider] -
Activity Restrictions/Additional Instructions:
Patient seen your blood pressures have been in the 160s to 180s range. We gave you a 5 mg dose of IV hydralazine. Your basic blood work is unremarkable. EKG is normal. We reviewed the Medtronic interrogation and this showed no sign of
abnormality to the rhythm of your heart or the pacemaker. The pacemaker is working appropriately. I am sending a prescription for amlodipine to your pharmacy.
Interventions
Interventions:
*Risk Screen - Suicide Last Done: 06/20/24 21:57
*General Assessment Last Done: 06/20/24 21:57
*Neglect/Abuse Screening Last Done: 06/20/24 21:57
ED- Fall Risk Assessment Last Done: 06/20/24 21:57
*ED COVID-19 Vaccine History Last Done: 06/20/24 21:57
ED- Neurological Assessment Last Done: 06/20/24 22:04
ED- Cardiac Assessment Last Done: 06/20/24 22:04
Discharge Date and Time
Print Language: UKRAINIAN
[2024-06-20 23:00] VITALS: BP 180/124
[2024-06-20 23:24] VITALS: BP 162/90
[2024-06-20] MEDS: APRESOLINE 5 MG IV (23:28)
[2024-06-21] VITALS: BP 145/86
== END 2024-06-21 01:02 | disposition home or self-care (01) ==
LOC: EMR 21:54
PROVIDERS: EMERGENCY PHYSICIAN Emergency Medicine; FAMILY PHYSICIAN Internal Medicine
DX: R42 Dizziness and giddiness (principal); R00.1 Bradycardia, unspecified; K21.9 Gastro-esophageal reflux disease without esophagitis; I10 Essential (primary) hypertension; Z87.11 Personal history of peptic ulcer disease; L40.9 Psoriasis, unspecified; Z80.1 Family history of malignant neoplasm of trachea, bronchus and lung; Z95.0 Presence of cardiac pacemaker
CPT/HCPCS: 99283; 80053; 85025; 93005

== ENCOUNTER 2024-07-19 06:22 | Emergency (ER) | payer MEDICARE, OTHER, SELFPAY ==
[2024-07-19] VITALS (10 sets, daily range): BP systolic 134–179; BP diastolic 83–102; PULSE 60–62
[2024-07-19 08:10] LABS: % Basophils 0.4 % (0-2); % Immature Granulocytes 0.4 % (0-0.5); % Lymphocytes 16.7 % (20.5-51.1); % Monocytes 9.9 % (1.7-9.3); % Neutrophils 71.6 % (42.2-75.2); Absolute Eosinophils 0.1 10^3/uL (0-0.7); Absolute Lymphocytes 1.2 10^3/uL (1.2-3.4); Absolute Monocytes 0.7 10^3/uL (0.1-0.6); Absolute Neutrophils 5.3 10^3/uL (1.4-6.5); Hemoglobin 16.4 g/dL (13.0-18.0); Mean Corp Hgb Conc. 34.2 g/dL (33.0-37.0); Mean Corpuscular Volume 93.6 fL (80.0-94.0); Mean Platelet Volume 11.7 fL (7.4-10.4); Nucleated Red Blood Cells % 0 % (-); Platelet Count 119 10^3/uL (130-400); Red Blood Cell Count 5.13 10^6/uL (4.70-6.10); Red Cell Dist. Width 12.7 % (11.5-14.5); White Blood Cell Count 7.4 10^3/uL (4.8-10.8)
[2024-07-19 08:13] LABS: ALT (SGPT) 31 U/L (0-50); AST (SGOT) 24 U/L (17-59); Albumin 3.8 g/dl (3.5-5.0); Alkaline Phosphatase 69 U/L (38-126); Blood Urea Nitrogen 20 mg/dl (9-20); Calcium 9.7 mg/dl (8.4-10.2); Carbon Dioxide 31 mmol/L (22-30); Chloride 102 mmol/L (98-107); Glucose 127 mg/dl (70-99); Potassium 4.6 mmol/L (3.5-5.1); Sodium 138 mmol/L (135-145); Total Bilirubin 0.9 mg/dl (0.2-1.3); Total Protein 6.3 g/dl (6.3-8.2); eGFR > 60.00
--- NOTE | 2024-07-19 08:35 | ED.GENMED ---
History of Present Illness
General
Chief Complaint: Blood Pressure Problem
Source: patient
Exam Limitations: none
Time Seen by Provider: 07/19/24 06:56
Nursing documentation reviewed up to this point in time: agreed with
History of Present Illness
History of Present Illness:
83-year-old male presenting to the emergency department today with concerns of elevated blood pressure at home. This seems to occur after he feels some room spinning dizziness. The room spinning dizziness seems to occur after he changes positions
rapidly. He was recently here twice in the past 2 months. 2 months ago he was found to have significant sinus pauses and has since had a pacemaker. This was placed and interrogated in the meantime with normal function. Cardiology deemed his
dizziness episodes did not be from cardiac origin. Otherwise here he is currently asymptomatic but did have an episode just prior to arrival.
Past History
Past History
ED Past Medical History: GERD (gastric ulcers), HTN and Other (Peptic ulcer disease, Low back pain, psoriasis)
ED Past Surgical History: Orthopedic and Tonsilectomy
Social History
Tobacco: Non-smoker
Alcohol: None
Family History
Family History: Other (Mother with lung cancer)
Review of Systems
Review of Systems
Allergies reviewed?: Yes
All Other Systems: ROS reviewed and negative except as documented in HPI and ROS
Phy Exam
Physical Exam
Physical Exam:
GENERAL: Alert , in no apparent distress
EYE: pupils equal and reactive
NECK: Supple, no significant adenopathy.
ENT: o/p clr, mmm.
CARDIAC: Regular rate and rhythm .
LUNGS: Clear breath sounds bilaterally, no acute respiratory distress, no wheezes/rales/rhonchi
ABDOMEN: Soft, without focal tenderness, no r/g, no cvat
NEUROLOGICAL: Alert and oriented, no focal neuro deficits 5 out of 5 upper and lower extremity strength normal sensation with palpating bilaterally normal finger-nose noticed and no pronator drift
SKIN: Warm and dry, skin intact.
MUSCULOSKELETAL: No edema, well perfused.
PSYCH: Normal and appropriate interaction.
Course
Orders/Labs/Results
Orders:
Orders
07/19/24 07:29
CT Head W/o Iv Contrast Urgent
Comment:
Reason For Exam: progressive GRAYSON, new
Orthostatic VS- Treatment ONCE
Pt Eval And Treat Urgent
Treatment: vestibular, vertigo symptoms
Activity Level: Ambulate
07/19/24 07:47
CBC/With Diff [Complete Blood Count/With Diff] Urgent
CMP [Comprehensive Metabolic Panel] Urgent
Abnormal Lab Results
07/19/24
07:47
MCH 32.0 H pg
(27.0-31.0)
Plt Count 119 L 10^3/uL
(130-400)
MPV 11.7 H fL
(7.4-10.4)
Absolute Monos (auto) 0.7 H 10^3/uL
(0.1-0.6)
Lymphocytes % 16.7 L %
(20.5-51.1)
Monocytes % 9.9 H %
(1.7-9.3)
Carbon Dioxide 31 H mmol/L
(22-30)
Glucose 127 H mg/dl
(70-99)
07/19/24 07:47
07/19/24 07:47
Vital Signs
Initial and Last Documented VS:
Initial Vital Signs
Temp Pulse Resp BP Pulse Ox
97.4 F 84 18 179/102 98
07/19/24 06:30 07/19/24 06:30 07/19/24 06:30 07/19/24 06:30 07/19/24 06:30
Last Documented Vital Signs
Temp Pulse Resp BP Pulse Ox
97.4 F 72 20 153/83 98
07/19/24 06:30 07/19/24 08:45 07/19/24 08:45 07/19/24 08:12 07/19/24 08:10
MDM/Problems Addressed
MDM/Problems Addressed:
83-year-old male presenting to the emergency department today with concerns of elevated blood pressure at home. Also had some room spinning dizziness that proceeded the elevated blood pressure. Here blood pressure is normal on my assess in the
130s over 60s. He currently is asymptomatic normal neurologic evaluation. Labs without emergent findings. CT head obtained without emergent findings. Patient feels well throughout stay. PT assessed the patient and recommend outpatient follow-up
with physical therapy otherwise stable for discharge return precautions given.
*Critical Care Note
Total Time (30-74mins, 75-104mins- exclusive of procedures): Not Applicable
ED Attending Note
-
Portions of this chart may have been created with voice recognition software.� Occasional wrong word or��sound alike� substitutions may have occurred due to the inherent limitations of voice recognition software.
Discharge Plan
Departure
Patient Disposition: Home (Routine Discharge)
Date of Disposition: 07/19/24
Time of Disposition: 10:29
Patient with high blood pressure during this ER visit?: No
Condition: Good
Covid-19: Not Applicable
Discharge Problem:
Vertigo
Instructions: Vertigo (a type of dizziness)
Prescriptions:
No Action
chromium picolinate 200 MCG tablet
200 mcg PO DAILY
hydrochlorothiazide 25 mg tablet
25 mg PO DAILY
losartan 100 mg tablet
100 mg PO DAILY
cholecalciferol (vitamin D3) [Vitamin D3] 50 mcg (2,000 unit) Tablet
100 mcg PO DAILY
amlodipine 2.5 mg tablet
2.5 mg PO DAILY Qty: 30 0RF
Referrals:
UNKNOWN - PT DOES,NOT KNOW [Family Provider] -
Activity Restrictions/Additional Instructions:
You came to the emergency department today with concerns of headache dizziness. Here you have a reassuring assessment. You had a normal CT scan. Please follow closely with PT and the ENT doctor. Return for any worsening, new or concerning
symptoms.
Interventions
Interventions:
*Risk Screen - Suicide Last Done: 07/19/24 06:23
*General Assessment Last Done: 07/19/24 06:23
*Neglect/Abuse Screening Last Done: 07/19/24 06:23
*ED COVID-19 Vaccine History Last Done: 07/19/24 06:23
ED- Cardiac Assessment Last Done: 07/19/24 08:12
ED- Neurological Assessment Last Done: 07/19/24 08:12
ED- Pulmonary Assessment Last Done: 07/19/24 08:12
Discharge Date and Time
Print Language: TAJIK
== END 2024-07-19 10:35 | disposition home or self-care (01) ==
LOC: EMR 06:22
PROVIDERS: Physician Assistant; EMERGENCY PHYSICIAN Emergency Medicine
DX: R42 Dizziness and giddiness (principal)
CPT/HCPCS: 99284; 70450; 80053; 85025

== ENCOUNTER → 2024-11-19 16:23 | Outpatient (REF) | payer MEDICARE, OTHER, SELFPAY | LOC: UCDH 16:23 | PROVIDERS: ATTENDING PHYSICIAN Emergency Medicine | DX: M25.572 Pain in left ankle and joints of left foot (principal) | CPT/HCPCS: 73610 ==

== ENCOUNTER → 2024-11-26 09:38 | Outpatient (REF) | payer MEDICARE, OTHER, SELFPAY | LOC: RAD 09:38 | PROVIDERS: ATTENDING PHYSICIAN Internal Medicine Cardiovascular Disease; FAMILY PHYSICIAN Internal Medicine | DX: R60.0 Localized edema (principal) | CPT/HCPCS: 93970 ==

== ENCOUNTER 2024-12-23 06:40 | Emergency (ER) | payer MEDICARE, OTHER, SELFPAY ==
[2024-12-23 06:42] VITALS: BP 178/112
[2024-12-23] MEDS: TYLENOL 1000 MG PO (07:12)
[2024-12-23] MEDS: LIDOCAINE 4% PATCH 1 PATCH TOPICAL (07:12)
--- NOTE | 2024-12-23 07:27 | ED.GENMED ---
History of Present Illness
General
Chief Complaint: Musculo-Skeletal Complaint
Source: patient and records
Time Seen by Provider: 12/23/24 06:47
History of Present Illness
History of Present Illness:
84-year-old male with past medical history of hypertension, recent pacemaker placement 6 months ago, hemochromatosis, GERD with previous gastric ulcer presenting to the emergency department for evaluation of right-sided lower back pain which began 1
week ago when he was lifting his 's wheelchair, pain initially mild, progressively worse through the weekend, last night pain was exacerbated when he excellently stumbled into a half wall while trying to ambulate in the dark now with increased
pain on movements patient took a dose of his 's tramadol Monday night and early this morning around 4 AM with some relief.. He was scheduled to undergo a stress test with cardiology later this morning but states due to the pain he did not
think he would be able to make it. Pain is exacerbated with movements, patient stating specifically lateral rotation. He denies any fevers or infectious symptoms, focal weakness or numbness, bruising, abdominal pain, hematuria or any other
concerns. Patient does note he has been treated for back pain in the past with history of sciatica needing epidurals before, follows with Dr. Reed for orthopedics and Dr. Engel for pain management in the past.
Past History
Past History
ED Past Medical History: GERD (gastric ulcers), HTN and Other (Peptic ulcer disease, Low back pain, psoriasis)
ED Past Surgical History: Orthopedic and Tonsilectomy
Social History
Tobacco: Non-smoker
Alcohol: None
Drug: None
Personal:
Living: with family
Family History
Family History: Other (Mother with lung cancer)
Review of Systems
Review of Systems
All Other Systems: ROS reviewed and negative except as documented in HPI and ROS
Phy Exam
Physical Exam
Physical Exam:
GENERAL: Alert , in no apparent distress when laying still however with movements patient did have spasmodic pain and would grimace
EYE: clear conjunctiva b/l
HEAD: NCAT
ENT: o/p clr, mmm.
CARDIAC: Regular rate and rhythm .
LUNGS: Clear breath sounds bilaterally, no acute respiratory distress, no wheezes/rales/rhonchi
ABDOMEN: Soft, without focal tenderness, no r/g, no cvat
BACK: No focal tenderness, no midline tenderness
NEUROLOGICAL: Alert and oriented
SKIN: Warm and dry, skin intact. No ecchymosis
MUSCULOSKELETAL: No edema, well perfused. Patient allows for full range of motion of the right, no pain with forward flexion or extension but did have pain with abduction. Extremity is otherwise warm and well-perfused
PSYCH: Normal and appropriate interaction.
Scores
Heart Failure Risk
Heart Failure Risk Score: Not Applicable
Heart Score for Chest Pain Patients
STEMI patient?: Not applicable
Withdrawal Assessment of Alcohol
Withdrawal Assessment Completed?: Not applicable
Course
Orders/Labs/Results
Orders:
Orders
12/23/24 07:06
Acetaminophen [Tylenol] 1,000 mg PO NOW STA
Lidocaine [Lidocaine 4% Patch] 1 patch TOPICAL NOW STA
Apply Lidocaine patch(s) to:: right lower back
CR Hip - RT w/wo Pel 2-3 Vw* Urgent
Comment:
Reason For Exam: right hip/pelvic pain/low back pain
Include a pelvis x-ray?: Yes
CR Lumbar Spine Comp Min 4 Vw* Urgent
Comment:
Reason For Exam: right lower back pain
Vital Signs
Initial and Last Documented VS:
Initial Vital Signs
Temp Pulse Resp BP Pulse Ox
97.9 F 80 24 178/112 98
12/23/24 06:42 12/23/24 06:42 12/23/24 06:42 12/23/24 06:42 12/23/24 06:42
Last Documented Vital Signs
Temp Pulse Resp BP Pulse Ox
97.9 F 62 16 133/84 98
12/23/24 06:42 12/23/24 08:28 12/23/24 08:28 12/23/24 08:28 12/23/24 08:28
MDM/Problems Addressed
Differential Diagnosis Includes:
Lumbar strain
Contusion
Fracture
Hip strain
Arthritis
No symptoms to suggest an acute neurologic complication
No symptoms to suggest infectious etiology
MDM/Problems Addressed:
84-year-old male presenting to the ER for evaluation of right lower back pain. Pain seems to be spasmodic in nature and likely more muscular. He does not have any signs of infection nor acute neurologic symptoms. Records reviewed showed patient
had a epidural done in 2018 due to L5/S1 radiculopathy. His last imaging on the lower back was in April 2022 showing multilevel degenerative changes, worse at L4-L5 and L5-S1. Patient off presentation I suspect a musculoskeletal etiology is the
most likely. Will obtain x-ray. Patient drove himself here so will avoid any muscle relaxant or opiate based medication as well as patient already did take a tramadol at 4 AM. Will send home with prescription for medications. Given his history
of gastric ulcer would also like to avoid NSAID use. Patient will likely need follow-up with Ortho/pain management if pain persists.
Chronic conditions affecting care: Other (Lumbar radiculopathy)
*Radiology
Radiology exam reviewed: preliminary read by ED provider (Degenerative changes, no fracture)
*Pulse Oximetry
SaO2: 98
Oxygen Mode of Delivery: Room air
Patient hypoxic: no
*Critical Care Note
Total Time (30-74mins, 75-104mins- exclusive of procedures): Not Applicable
Data Reviewed
Review of Other/Old Records Reveals: Records and Radiology Studies
Patient Management
Escalation/DeEscalation of care consider admission/obs:
Patient feeling better with the medications provided here. He is able to ambulate on his own without any difficulty. Feels comfortable being discharged home. Prescriptions for Medrol Dosepak and muscle relaxant sent to pharmacy. Patient aware
of return precautions. Stable for discharge home.
ED Attending Note
-
Portions of this chart may have been created with voice recognition software.� Occasional wrong word or��sound alike� substitutions may have occurred due to the inherent limitations of voice recognition software.
Discharge Plan
Departure
Patient Disposition: Home (Routine Discharge)
Date of Disposition: 12/23/24
Time of Disposition: 08:33
Patient with high blood pressure during this ER visit?: Yes
Discharge Problem:
Low back pain
Instructions: Back Pain
Prescriptions:
New
methylprednisolone [Medrol (Segundo)] 4 mg tablets,dose pack
4 mg PO DIRECTED Qty: 21 0RF
diazepam [Valium] 5 mg tablet
5 mg PO BID PRN (Reason: muscle spasm) Qty: 8 0RF
No Action
chromium picolinate 200 MCG tablet
200 mcg PO DAILY
hydrochlorothiazide 25 mg tablet
25 mg PO DAILY
losartan 100 mg tablet
100 mg PO DAILY
cholecalciferol (vitamin D3) [Vitamin D3] 50 mcg (2,000 unit) Tablet
100 mcg PO DAILY
amlodipine 2.5 mg tablet
2.5 mg PO DAILY Qty: 30 0RF
Referrals:
Rigoberto Reed MD [Active, Orthopedics]
Kranthi Groves MD [Family Provider]
Interventions
Interventions:
*Risk Screen - Suicide Last Done: 12/23/24 06:42
*General Assessment Last Done: 12/23/24 08:29
*Neglect/Abuse Screening Last Done: 12/23/24 06:42
*ED- Fall Risk Assessment Last Done: 12/23/24 08:29
*ED COVID-19 Vaccine History Last Done: 12/23/24 08:29
*Nursing Disposition Last Done: 12/23/24 08:40
ED-Musculoskeletal Assessment Last Done: 12/23/24 08:29
Discharge Date and Time
Discharge Date/Time: 12/23/24 08:48
Print Language: [id number]
[2024-12-23 08:28] VITALS: BP 133/84
== END 2024-12-23 08:48 | disposition home or self-care (01) ==
LOC: EMR 06:40
PROVIDERS: EMERGENCY PHYSICIAN Student in an Organized Health Care Education/Training Program; FAMILY PHYSICIAN Internal Medicine
DX: M54.50 Low back pain, unspecified (principal); I10 Essential (primary) hypertension; K21.9 Gastro-esophageal reflux disease without esophagitis; E83.119 Hemochromatosis, unspecified; Z80.1 Family history of malignant neoplasm of trachea, bronchus and lung; Z87.11 Personal history of peptic ulcer disease; Z95.0 Presence of cardiac pacemaker
CPT/HCPCS: 99283; 72110; 73502

== ENCOUNTER → 2025-05-14 14:49 | Outpatient (REF) | payer MEDICARE, OTHER, SELFPAY | LOC: RAD 14:49 | PROVIDERS: ATTENDING PHYSICIAN Physician Assistant; FAMILY PHYSICIAN Student in an Organized Health Care Education/Training Program | DX: R05.3 Chronic cough (principal) | CPT/HCPCS: 71046 ==